=== PATIENT | female | born 1955 | race Caucasian/White ===

== ENCOUNTER 2016-11-06 17:04 | Emergency (ER) | payer MEDICAID ==
[2016-11-06 17:09] VITALS: TEMP 97.9
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
[2016-11-06 17:59] VITALS: BP 158/91; PULSE 69; RESP 16; O2SAT 96
== END 2016-11-06 17:58 | disposition home or self-care (01) ==
DX: R20.2 Paresthesia of skin (principal); M54.2 Cervicalgia; F17.200 Nicotine dependence, unspecified, uncomplicated